=== PATIENT | male | born 1950 | race African-American/Black ===

== ENCOUNTER 2024-01-08 16:22 | Inpatient (IN) | payer MEDICARE, OTHER ==
[2024-01-08 18:06] LABS: Troponin I 0.019 ng/mL (< 0.028)
[2024-01-08 18:07] LABS: ALT (SGPT) 1677 U/L (8-55); AST (SGOT) 1773 U/L (5-34); Albumin 3.9 g/dL (3.4-4.8); Alkaline Phosphatase 139 U/L (40-110); Anion Gap 15 mmol/L (10-20); BUN (Urea Nitrogen) 21 mg/dL (8.4-25.7); Calc. Creatinine Clearance 0 mL/min (70-130); Calcium 10.6 mg/dL (7.8-10.44); Carbon Dioxide 17 mmol/L (23-31); Chloride 110 mmol/L (98-107); Estimated GFR 55; Globulin 2.9 g/dL (2.4-3.5); Glucose 96 mg/dL (83-110); Lipase 407 U/L (8-78); Magnesium 1.9 mg/dL (1.6-2.6); Potassium 4.2 mmol/L (3.5-5.1); Protein, Total 6.8 g/dL (5.8-8.1); Sodium 138 mmol/L (136-145)
[2024-01-08 18:19] LABS: Platelet Count 95 10x3/uL (150-450)
[2024-01-08 18:20] LABS: Hematocrit 37.9 % (38.8-50.0); Hemoglobin 13.4 g/dL (13.5-17.5); Mean Corpuscular HGB CONC 35.4 g/dL (32.0-36.0); Mean Corpuscular Hemoglobin 31.4 pg (27.0-33.0); Mean Corpuscular Volume 88.8 fL (81.2-95.1); Mean Platelet Volume 12.6 fL (7.4-10.4); RBC Distribution Width 13.2 % (11.5-14.5); Red Blood Cell (RBC) Count 4.27 10x6/uL (4.32-5.72); White Blood Cell (WBC) Count 13.8 10x3/uL (3.5-10.5)
[2024-01-08 18:55] LABS: MDiff Complete? YES
[2024-01-08 19:00] LABS: Band 2 % (5-11); Monocytes 11 % (0-10)
[2024-01-08 19:01] LABS: Lymphocytes 3 % (21-51); Neutrophil 84 % (42-75)
[2024-01-08 19:04] LABS: Platelet Adequacy Comment Appears Decreased; RBC Morph Comment Within Normal Limits
[2024-01-08] MEDS ORDERED: Piperacillin/Tazobactam 4.5 GM VIAL ONE (21:25)
[2024-01-08 22:24] LABS: Acetaminophen Less than 10 mcg/mL (Less than 10)
[2024-01-08 23:33] VITALS: BMI 25.4
[2024-01-08] MEDS ORDERED: Ondansetron PF 4 MG/2 ML Vial IVP PRN (23:41)
[2024-01-08] MEDS ORDERED: Ondansetron ODT 4 MG TAB PO PRN (23:41)
[2024-01-08] MEDS ORDERED: Ibuprofen 200 MG TAB PO PRN (23:41)
[2024-01-09] MEDS: cloNIDine 0.1 MG TAB PO SCH ×2 (00:10→08:40)
[2024-01-09] MEDS: Verapamil 80 MG TAB PO SCH ×2 (00:11→08:40)
[2024-01-09] MEDS: Lactated Ringer's 1,000 ML IV SCH (00:12)
[2024-01-09] MEDS: Piperacillin/Tazobactam 3.375 GM in Sodium Chloride 0.9% 100 ML IVPB SCH (01:54)
[2024-01-09 04:20] LABS: #Basophils 0.02 10x3/uL (0.0-0.2); #Eosinophils 0.03 10x3/uL (0.0-0.5); #Monocytes 1.01 10x3/uL (0.0-1.1); #Neutrophils 9.67 10x3/uL (1.5-8.4); %Basophils 0.2 % (0.0-2.0); %Eosinophils 0.3 % (0.0-6.0); %Lymphocytes 7.4 % (18.0-47.0); %Monocytes 8.7 % (0.0-10.0); %Neutrophils 82.8 % (40.0-75.0); Hematocrit 33.9 % (38.8-50.0); Hemoglobin 11.5 g/dL (13.5-17.5); Mean Corpuscular HGB CONC 33.9 g/dL (32.0-36.0); Mean Corpuscular Hemoglobin 30.3 pg (27.0-33.0); Mean Corpuscular Volume 89.4 fL (81.2-95.1); RBC Distribution Width 13.2 % (11.5-14.5); Red Blood Cell (RBC) Count 3.79 10x6/uL (4.32-5.72); White Blood Cell (WBC) Count 11.7 10x3/uL (3.5-10.5)
[2024-01-09 04:23] LABS: MONO NEGATIVE CONTROL ZONE White (Negative) (White); MONO POSITIVE CONTROL Pink Line (Positive) (PINK/RED); Mononucleosis NEGATIVE (NEGATIVE)
[2024-01-09 04:24] LABS: INR-International Normal Ratio 1.2; PTT 27.4 sec (22.0-33.0)
[2024-01-09 04:26] LABS: Mean Platelet Volume 12.5 fL (7.4-10.4); Platelet Count 85 10x3/uL (150-450)
[2024-01-09 04:30] LABS: ALT (SGPT) 1078 U/L (8-55); AST (SGOT) 656 U/L (5-34); Albumin 3.2 g/dL (3.4-4.8); Alkaline Phosphatase 113 U/L (40-110); Anion Gap 11 mmol/L (10-20); BUN (Urea Nitrogen) 20 mg/dL (8.4-25.7); Bilirubin, Total 3.5 mg/dL (0.2-1.2); Calc. Creatinine Clearance 66 mL/min (70-130); Calcium 10.2 mg/dL (7.8-10.44); Carbon Dioxide 20 mmol/L (23-31); Chloride 113 mmol/L (98-107); Estimated GFR 57; Globulin 2.3 g/dL (2.4-3.5); Glucose 103 mg/dL (83-110); Iron 36 ug/dL (65-175); Iron Binding Capacity, Total 221 mcg/dL (261-462); Potassium 3.8 mmol/L (3.5-5.1); Protein, Total 5.5 g/dL (5.8-8.1); Sodium 140 mmol/L (136-145)
[2024-01-09 04:46] LABS: HIV (1/2) Antibody/Antigen Non-Reactive (NonReactive); HIV 1/2 INDEX 0.08 S/CO (<1.00)
[2024-01-09] MEDS: Enoxaparin 40 MG (0.4 mL) SYRINGE SC SCH (08:39)
[2024-01-09] MEDS: Finasteride 5 MG TAB PO SCH (08:40)
[2024-01-09] MEDS: Aspirin 81 mg Enteric Coated Tablet PO SCH (08:41)
[2024-01-09 12:51] LABS: Bilirubin, Direct 2.8 mg/dL (0.1-0.3); Bilirubin, Total 3.9 mg/dL (0.2-1.2)
[2024-01-09] MEDS ORDERED: Iopamidol 30 ML ONE (14:54)
[2024-01-09] MEDS ORDERED: Bupivacaine HCl 0.5%/Epinephrine 1:200,000/PF 30 ml Vial ONE (14:54)
[2024-01-09] MEDS ORDERED: Glucagon 1 MG/ML KIT ONE (14:55)
[2024-01-09] MEDS ORDERED: PROPOFOL 20 ML ONE (15:22)
[2024-01-09] MEDS ORDERED: Lidocaine 1% PF 5 ML VIAL ONE (15:22)
[2024-01-09] MEDS ORDERED: fentaNYL 50 mcg/mL 1 mL Vial ONE ×2 (15:22→18:08)
[2024-01-09] MEDS ORDERED: Rocuronium Bromide 10 MG/ML (10ML VIAL) ONE (15:22)
[2024-01-09] MEDS ORDERED: CEFAZOLIN 1 GM VIAL ONE (16:24)
[2024-01-09 17:00] LABS: Hep A IgM AB NONREACTIVE (NonReactive); Hep A IgM S/CO 0.26 S/CO (0-0.79); Hep B Core IgM Index 0.06 S/CO (0-0.79); Hep C IgG Ab NONREACTIVE S/CO (NonReactive); Hepatitis B Core IgM Abs NONREACTIVE S/CO (NonReactive)
[2024-01-09] MEDS ORDERED: Ondansetron PF 4 MG/2 ML Vial ONE (17:06)
[2024-01-09] MEDS ORDERED: hydrALAZINE 20 MG/ML VIAL ONE ×2 (17:06→17:58)
[2024-01-09] MEDS ORDERED: SUGAMMADEX SODIUM 200 MG/2 ML VIAL ONE (17:07)
[2024-01-09] MEDS ORDERED: Ibuprofen 800 MG TAB PO PRN (17:56)
[2024-01-09] MEDS ORDERED: Morphine 4 MG/ML VIAL SLOW IVP PRN (17:56)
[2024-01-09] MEDS ORDERED: HYDROcodone/Acetaminophen 5/325 mg Tablet PO PRN (17:56)
[2024-01-09] MEDS ORDERED: Ibuprofen 400 MG TAB PO PRN (17:56)
[2024-01-09] MEDS ORDERED: Morphine 2 MG/ML VIAL SLOW IVP PRN (17:56)
[2024-01-09] MEDS ORDERED: Meperidine HCl/PF 25 MG (1 mL) VIAL ONE (18:04)
[2024-01-10] MEDS: Lactated Ringer's 1,000 ML IV SCH (00:11)
[2024-01-10 04:05] LABS: Mean Platelet Volume 12.8 fL (7.4-10.4); Platelet Count 77 10x3/uL (150-450)
[2024-01-10 04:06] LABS: #Basophils 0.03 10x3/uL (0.0-0.2); #Eosinophils 0.03 10x3/uL (0.0-0.5); #Neutrophils 6.88 10x3/uL (1.5-8.4); %Basophils 0.3 % (0.0-2.0); %Eosinophils 0.3 % (0.0-6.0); %Lymphocytes 8.3 % (18.0-47.0); %Monocytes 10.5 % (0.0-10.0); %Neutrophils 80.3 % (40.0-75.0); Hemoglobin 11.5 g/dL (13.5-17.5); Mean Corpuscular HGB CONC 33.8 g/dL (32.0-36.0); Mean Corpuscular Hemoglobin 31.1 pg (27.0-33.0); Mean Corpuscular Volume 91.9 fL (81.2-95.1); RBC Distribution Width 13.7 % (11.5-14.5); White Blood Cell (WBC) Count 8.6 10x3/uL (3.5-10.5)
[2024-01-10 04:12] LABS: ALT (SGPT) 669 U/L (8-55); AST (SGOT) 253 U/L (5-34); Alkaline Phosphatase 109 U/L (40-110); Anion Gap 10 mmol/L (10-20); BUN (Urea Nitrogen) 15 mg/dL (8.4-25.7); Bilirubin, Total 4.1 mg/dL (0.2-1.2); Calc. Creatinine Clearance 70 mL/min (70-130); Calcium 10.2 mg/dL (7.8-10.44); Carbon Dioxide 20 mmol/L (23-31); Chloride 110 mmol/L (98-107); Estimated GFR 61; Globulin 2.7 g/dL (2.4-3.5); Glucose 90 mg/dL (83-110); Potassium 4.3 mmol/L (3.5-5.1); Protein, Total 5.7 g/dL (5.8-8.1); Sodium 136 mmol/L (136-145)
[2024-01-10] MEDS: HYDROcodone/Acetaminophen 5/325 mg Tablet PO PRN (05:40)
[2024-01-10 07:44] VITALS: TEMP 98.5
[2024-01-10 12:45] VITALS: BP 148/78
[2024-01-11 12:21] LABS: ANA Symphony (Qualitative) Negative (Negative); ANA Symphony (Quantitative) 0.2 Ratio (< 0.7 Negative); EliA Vaculitis New Method **** NEW METHOD ****; Mitochondrial Ab 1.1 U/mL (<4 Negative)
== END 2024-01-10 12:00 | disposition still patient (30) | DRG 419 ==
LOC: CSHERS 16:22 → CSHTELE 22:03
PROVIDERS: ADMIT Family Medicine; ATTEND Internal Medicine
PROC: 0FT44ZZ Resection of Gallbladder, Percutaneous Endoscopic Approach (ICD-10-PCS; principal; 2024-01-09)
PROC: BF131ZZ Fluoroscopy of Gallbladder and Bile Ducts using Low Osmolar Contrast (ICD-10-PCS; 2024-01-09)
DX: K80.42 Calculus of bile duct with acute cholecystitis without obstruction (principal); D72.829 Elevated white blood cell count, unspecified; D69.6 Thrombocytopenia, unspecified; N18.31 Chronic kidney disease, stage 3a; I12.9 Hypertensive chronic kidney disease with stage 1 through stage 4 chronic kidney disease, or unspecified chronic kidney disease; E83.52 Hypercalcemia; E80.6 Other disorders of bilirubin metabolism; Z79.899 Other long term (current) drug therapy; Z79.82 Long term (current) use of aspirin; R00.1 Bradycardia, unspecified; K74.60 Unspecified cirrhosis of liver
CPT/HCPCS: 36415; 47532; 71045; 74177; 76705; 80053; 80074; 80143; 82103; 82105; 82247; 82390; 83516; 83540; 83550; 83605; 83690; 83735; 84484; 85025; 85610; 85730; 86015; 86038; 86225; 86308; 86765; 87040; 87077; 87149; 87186; 87389; 88304; 93005; 96361; 96365; 80307; C1889; J0360; J0690; J1611; J1650; J2175; J2405; J2543; J2704; J3010; J7120; Q9967

== ENCOUNTER → 2024-01-22 | Emergency (ER) | payer MEDICARE, OTHER ==
[2024-01-22 15:06] LABS: #Basophils 0.07 10x3/uL (0.0-0.2); #Eosinophils 0.06 10x3/uL (0.0-0.5); #Monocytes 0.61 10x3/uL (0.0-1.1); #Neutrophils 4.36 10x3/uL (1.5-8.4); %Basophils 1.1 % (0.0-2.0); %Lymphocytes 15.9 % (18.0-47.0); %Neutrophils 71.7 % (40.0-75.0); Hemoglobin 11.1 g/dL (13.5-17.5); Mean Corpuscular HGB CONC 34.7 g/dL (32.0-36.0); Mean Corpuscular Volume 89.4 fL (81.2-95.1); Mean Platelet Volume 11.7 fL (7.4-10.4); Platelet Count 160 10x3/uL (150-450); RBC Distribution Width 13.9 % (11.5-14.5); Red Blood Cell (RBC) Count 3.58 10x6/uL (4.32-5.72); White Blood Cell (WBC) Count 6.1 10x3/uL (3.5-10.5)
[2024-01-22 15:18] LABS: PTT 24.8 sec (22.0-33.0); Prothrombin Time 11.3 sec (9.5-12.1)
[2024-01-22 15:23] LABS: ALT (SGPT) 78 U/L (8-55); AST (SGOT) 41 U/L (5-34); Albumin 3.5 g/dL (3.4-4.8); Alkaline Phosphatase 115 U/L (40-110); Anion Gap 11 mmol/L (10-20); BUN (Urea Nitrogen) 17 mg/dL (8.4-25.7); Bilirubin, Total 0.9 mg/dL (0.2-1.2); Calc. Creatinine Clearance 0 mL/min (70-130); Calcium 10.7 mg/dL (7.8-10.44); Carbon Dioxide 21 mmol/L (23-31); Chloride 113 mmol/L (98-107); Estimated GFR 61; Globulin 3.1 g/dL (2.4-3.5); Glucose 107 mg/dL (83-110); Lipase 36 U/L (8-78); Potassium 3.6 mmol/L (3.5-5.1); Protein, Total 6.6 g/dL (5.8-8.1); Sodium 141 mmol/L (136-145)
[2024-01-22 17:41] LABS: Bilirubin Neg (Negative); Blood, Urine Negative (Negative); Clarity Clear (Clear); Glucose, Urine (Dipstick) Normal (Negative); Ketone, Urine Negative (Negative); Leukocyte Negative (Negative); Nitrite Negative (Negative); Protein, Urine (Dipstick) 15 mg/dl (Neg-Trace); Urobilinogen Normal mg/dL (Less than 2)
[2024-01-22 18:05] LABS: CAUTI Indications for Culture Pelvic or flank pain; RBC/HPF 0-3 HPF (0-3); Squamous Epithelial 0-3 HPF (0-3); WBC/HPF 0-3 HPF (0-3)
[2024-01-22 18:07] LABS: Bacteria/HPF 1+ HPF (None Seen)
[2024-01-22 18:09] LABS: Mucous/LPF 1+ LPF (<2+); Urine Culture Reflex No No
== END ==
LOC: CSHERS 13:59
DX: R10.84 Generalized abdominal pain (principal); R19.7 Diarrhea, unspecified; I10 Essential (primary) hypertension
CPT/HCPCS: 36415; 74177; 80053; 81001; 83690; 85025; 85610; 85730